=== PATIENT | female | born 1975 ===

== ENCOUNTER → 2018-12-01 | Outpatient (CLI) | payer BC | LOC: BMCIMAGING 12:17 | PROVIDERS: ATTEND Family Medicine | DX: M25.512 Pain in left shoulder (principal) ==

== ENCOUNTER → 2018-12-30 | Outpatient (CLI) | payer BC ==
[~2018-12-30] MED LIST: GADOBUTROL 10 ML VIAL IVP ONE
== END ==
LOC: FIMAGING 09:58
DX: G93.9 Disorder of brain, unspecified (principal)
CPT/HCPCS: A9585